=== PATIENT | male | born 1990 | race Caucasian/White ===

== ENCOUNTER → 2016-11-28 | Outpatient (CLI) | payer BC ==
--- NOTE | 2016-11-29 16:36 | DI ---
XR T-SPINE 3VW,11/28/2016 5:07 PM: Clinical History: Acute thoracic back pain Previous Exam: None at this facility. Findings: 3 views of the thoracic spine are obtained, and demonstrate anatomic alignment without fractures. Marci tebral body height is preserved. Intervertebral disc height is also preserved. The lungs are clear and the cardiomediastinum is unremarkable. Impression: Normal thoracic spine.
== END ==
LOC: MOB RAD 17:10
PROVIDERS: ATTEND Physician Assistant Medical
DX: M54.6 Pain in thoracic spine (principal); W55.22XA Struck by cow, initial encounter; Y99.0 Civilian activity done for income or pay; F17.200 Nicotine dependence, unspecified, uncomplicated
CPT/HCPCS: 72072

== ENCOUNTER → 2016-12-01 | Outpatient (CLI) | payer BC ==
--- NOTE | 2016-12-01 12:55 | DI ---
MRI THORACIC SPINE W/O CN,12/01/2016 9:13 AM: Clinical History: Acute thoracic back pain. Previous Exam: Plain films of the thoracic spine performed November 28, 2016 Findings: Multiplanar MR images are obtained through the thoracic spine without contrast. Bony alignment is anatomic. No fractures are seen. Marrow signal is preserved. The spinal cord descen ds normally with normal course, caliber and signal characteristics. There is a normal conus at the L1 level. There is no significant thoracic disc disease. There is only some minimal disc desiccation at the T6/ 7 and T7/8 and T8/T9 levels. The paraspinal musculature is unremarkable. There is no significant central canal stenosis. Visualized portions of the cervical spine are unremarkable. Impression: Normal thoracic spine for age.
== END ==
LOC: MRI 09:06
PROVIDERS: ATTEND Physician Assistant Medical
DX: M54.6 Pain in thoracic spine (principal)
CPT/HCPCS: 72146

== ENCOUNTER → 2016-12-08 | Outpatient (CLI) | payer BC ==
--- NOTE | 2016-12-08 15:36 | DI ---
MRI LUMBAR SPINE SCAN WITHOUT IV CONTRAST, 12/08/2016 11:59 AM: Clinical History: Injury to the low back. Previous Exam: None. Technique: Sagittal and axial T2 weighted; sagittal T1 weighted and T2 STIR; and axial PD. The vertebral bodies are of normal height and size. There is no abnormally increased signal intensity in the bony structures to indicate evidence of an acute injury. The disc spaces are normal height an d signal pattern. The cord terminates at T12 and the conus medullaris is normal. The disc spaces from T11-12 through L5-S1 are normal. Readin. There is no acute fracture identified. 2. The disc spaces from T11-12 through L5-S1 are normal.
== END ==
LOC: MRI 13:00
PROVIDERS: ATTEND Physician Assistant Medical
DX: M54.5 Low back pain (principal)
CPT/HCPCS: 72148

== ENCOUNTER → 2017-04-10 | Outpatient (CLI) | payer BC ==
--- NOTE | 2017-04-10 09:23 | DI ---
PA /LATERAL CHEST X-RAY, 04/10/2017 8:20 AM : Clinical History: Dyspnea Previous Exam: May 29, 2016 There is no acute soft tissue or bony abnormality. Heart size is normal. Lungs are clear. Mediastinal structures are normal. There are no pulmonary nodules. IMPRESSION: Normal chest x-ray.
== END ==
LOC: MOB RAD 08:27
PROVIDERS: ATTEND Physician Assistant Medical
DX: R06.00 Dyspnea, unspecified (principal); R05 Cough; X08.8XXA Exposure to other specified smoke, fire and flames, initial encounter; Y93.89 Activity, other specified; Y92.65 Oil rig as the place of occurrence of the external cause; Y99.0 Civilian activity done for income or pay
CPT/HCPCS: 71020

== ENCOUNTER → 2017-04-17 | Outpatient (CLI) | payer BC ==
--- NOTE | 2017-04-17 15:24 | PE ---
[facility] [place] Interpretive Statements [email or web address]
== END ==
LOC: RT 11:43
PROVIDERS: ATTEND Physician Assistant Medical
DX: R06.02 Shortness of breath (principal); Z72.0 Tobacco use
CPT/HCPCS: 94060